=== PATIENT | male | born 1945 | race Caucasian/White ===

== ENCOUNTER 2025-02-17 11:10 | Emergency (ER) | payer MEDICARE, OTHER ==
[~2025-02-17] VITALS: Ht 177.8 cm; Wt 86.0 kg
[2025-02-17 11:16] VITALS: TEMP 98
[2025-02-17] MEDS ORDERED: tetanus & diphtheria toxoid (Td) vaccine 0.5ml IMVAC ONE (11:30)
[2025-02-17] MEDS: ringers solution, lacted 1,000 ML IV ONE (11:30)
[2025-02-17] MEDS: fentaNYL/PF 50MCG/1 ML 2ML syringe IV ONE (11:30)
[2025-02-17] MEDS: TETanus/Pertussis (Acell)/Diphther VAC/PF (Tdap-Adult) 0.5ml syringe IMVAC ONE (11:55)
[2025-02-17] MEDS: HYDROmorphone inj. 0.5 MG/0.5 ML DISP.SYRIN IV ONE (11:56)
[2025-02-17 12:01] LABS: BASOPHILS % (AUTO) 0.3 % (0-1); EOSINOPHILS # (AUTO) 0.2 X10'3 (0-0.9); EOSINOPHILS % (AUTO) 2.1 % (0-6); HEMATOCRIT 42.6 % (42.0-52.0); HEMOGLOBIN 14.1 g/dl (14.0-17.9); LYMPHOCYTES # (AUTO) 2.1 X10'3 (1.1-4.8); MEAN CORPUSCULAR HEMOGLOBIN 30.6 PG (27.0-31.0); MEAN CORPUSCULAR HGB CONC 33.2 g/dL (33.0-36.5); MEAN CORPUSCULAR VOLUME 92.2 FL (78-98); MEAN PLATELET VOLUME 7.7 FL (7.4-10.4); MONOCYTES # (AUTO) 0.7 X10'3 (0-0.9); MONOCYTES % (AUTO) 6.6 % (2-12); NEUTROPHILS # (AUTO) 7.6 X10'3 (1.8-7.7); PLATELET COUNT 318 X10'3 (140-440); RED BLOOD COUNT 4.62 X10'6 (4.70-6.10); WHITE BLOOD COUNT 10.7 X10'3 (4.5-11.0)
[2025-02-17 12:09] LABS: ALANINE AMINOTRANSFERASE 31 U/L (12-78); ALBUMIN/GLOBULIN RATIO 1.3 (1.1-1.5); ALKALINE PHOSPHATASE 75 IU/L (46-116); ANION GAP 11 (8-16); ASPARTATE AMINO TRANSFERASE 32 U/L (10-37); BILIRUBIN,TOTAL 0.7 MG/DL (0.1-1.0); BLOOD UREA NITROGEN 21 MG/DL (7-18); BUN/CREATININE RATIO 19.3 (10.0-20.0); CALCIUM 8.5 MG/DL (8.5-10.1); CHLORIDE 103 MMOL/L (99-107); CREATININE 1.09 MG/DL (0.60-1.10); GLUCOSE 212 MG/DL (70-104); POTASSIUM 3.9 MMOL/L (3.5-5.1); SODIUM 138 MMOL/L (135-145); TOTAL CARBON DIOXIDE 24.3 MMOL/L (24-32); TOTAL PROTEIN 7.1 G/DL (6.4-8.2); eCRCL 58 ML/MIN; eGFR 65 ML/MIN
[2025-02-17] MEDS: HYDROmorphone 1 mg/ml syringe IV ONE ×2 (12:38→13:27)
[2025-02-17 13:43] VITALS: BP 141/76; PULSE 80; RESP 17; O2SAT 98
== END 2025-02-17 13:45 | disposition short-term general hospital (02) ==
LOC: ER 11:11
DX: T21.32XA Burn of third degree of abdominal wall, initial encounter (principal); T21.31XA Burn of third degree of chest wall, initial encounter; T24.311A Burn of third degree of right thigh, initial encounter; T22.351A Burn of third degree of right shoulder, initial encounter; I49.8 Other specified cardiac arrhythmias; X08.8XXA Exposure to other specified smoke, fire and flames, initial encounter; Y93.89 Activity, other specified; Y92.89 Other specified places as the place of occurrence of the external cause; Y99.8 Other external cause status
CPT/HCPCS: 36415; 80053; 85025; 90715; 93005; 96361; 96374; 96375; 96376; 99291; A6258; G0008; J1171; J3010; J7030; J7120; 90471

== ENCOUNTER 2025-10-11 08:19 | Outpatient (CLI) | payer MEDICARE, OTHER ==
[2025-10-11 08:59] LABS: MEAN PLATELET VOLUME 7.6 FL (7.4-10.4); RED CELL DISTRIBUTION WIDTH 12.6 % (11.5-14.5)
[2025-10-11 09:03] LABS: APTT 27 SECONDS (22-32); INR 1.0 INR
[2025-10-11 09:07] LABS: CHOL/HDL RATIO 3.2 (0.00-4.99); CREATININE 0.94 MG/DL (0.60-1.10); LDL CHOLESTEROL 118 MG/DL (50-100); TOTAL CARBON DIOXIDE 28.8 MMOL/L (24-32); eGFR 77 ML/MIN
[2025-10-12] MEDS ORDERED: tamsulosin hcl PO (15:57)
[2025-10-12] MEDS ORDERED: LOSA25TA41 PO (15:57)
[2025-10-12] MEDS ORDERED: OMEP20TA23 PO (15:57)
== END 2025-10-11 23:59 | disposition home or self-care (01) ==
LOC: LAB 08:19
PROVIDERS: ATTEND Internal Medicine Interventional Cardiology
DX: Z01.812 Encounter for preprocedural laboratory examination (principal); I50.22 Chronic systolic (congestive) heart failure; Z13.220 Encounter for screening for lipoid disorders
CPT/HCPCS: 36415; 80048; 80061; 85025; 85610; 85730

== ENCOUNTER 2025-10-13 07:05 | Day surgery (SDC) | payer MEDICARE, OTHER ==
[~2025-10-13] VITALS: Ht 177.8 cm; Wt 85.0 kg
[2025-10-13] VITALS (12 sets, daily range): BP systolic 96–160; BP diastolic 58–80; PULSE 56–70; RESP 11–16; TEMP 98.2; O2SAT 94–97
[~2025-10-13 07:05] MED LIST: LOSA25TA41 PO; OMEP20TA23 PO; tamsulosin hcl PO
--- NOTE | 2025-10-13 07:52 | ELECTROCARDIOGRAPH REPORT ---
[facility] Test Date: 2025-10-13 Test Time: 07:50:12 Pat Name: MIMI MARTINES Department: [facility] Patient ID: [id number] Room: Gender: M Pharmacy Aide: COLLINS : 1945 Requested By: ERNESTO LAGUNAS Order Number: [id number] Reading MD: Dr. DENIZ Win Measurements Intervals [place] Rate: 60 P: 78 MD: 203 QRS: 79 QRSD: 171 T: -84 QT: 509 QTc: 509 Interpretive Statements Sinus rhythm Left bundle branch block Electronically Signed On 10-13-2025 16:35:[address] DENIZ Win Please click the below link to view image of tracing.
[2025-10-13] MEDS ORDERED: Tamsulosin PO (08:50)
[2025-10-13] MEDS ORDERED: LIDOcaine 1% (10mg/ml) 2ml vial ONE (09:01)
[2025-10-13] MEDS ORDERED: midazolam 1 mg/ML 2ml injection ONE (09:01)
[2025-10-13] MEDS ORDERED: fentaNYL/PF 50MCG/1 ML 2ML syringe ONE (09:01)
[2025-10-13] MEDS ORDERED: verapamil 2.5 mg/ml inj IV ONE (09:01)
[2025-10-13] MEDS ORDERED: heparin 1,000unit/ml 10ml vial 10 ML ONE (09:02)
[2025-10-13] MEDS ORDERED: nitroGLYCERIN 500mcg/5mL D5W 5 ML IV ONE (09:04)
[2025-10-13] MEDS ORDERED: LIDOcaine 1% 30ml preserv. free vial ONE (09:16)
[2025-10-13] MEDS ORDERED: ondansetron/PF 4mg/2ml inj IV PRN (10:50)
[2025-10-13] MEDS ORDERED: HYDROcodone/acetaminophen 10/325mg tab PO PRN (10:55)
[2025-10-13] MEDS ORDERED: HYDROcodone/acetaminophen 5mg/325mg tablet PO PRN (10:55)
[2025-10-13] MEDS ORDERED: OXAZEpam 15mg capsule PO PRN (10:55)
--- NOTE | 2025-10-21 16:26 | CARDIOLOGY REPORT ---
DATE OF SERVICE: 10/13/2025 DICTATING PHYSICIAN: Bryson Pillai MD CARDIAC CATHETERIZATION REPORT DATE OF STUDY: 10/13/2025 PROCEDURES: * Attempted access to the right radial artery. * Access to the left common femoral artery. * Selective coronary angiography. * Conscious sedation monitoring time for 15 minutes. INDICATION: Aortic stenosis. PHYSICIAN: Bryson Pillai MD DESCRIPTION OF PROCEDURE: After informed consent was obtained, the patient was brought to the lab in the fasting state, where he was prepped and draped in the usual C-arm fashion. Attempted access to the right radial artery was made without success. Thereafter, access to the left common femoral artery was obtained. Using a JL4 followed by a JR4 catheter, selective coronary angiography was performed. HEMODYNAMICS: For the patient's hemodynamics, please refer to the event log. There was no significant gradient across the aortic valve on catheter pull back. FINDINGS: All of the patient's coronary arteries are medium caliber vessels with mild luminal irregularities. IMPRESSION: * Mild luminal irregularities with no significant coronary artery disease by angiography. * Left ventriculography was not performed. Brysno Pillai MD TID: [id number] RECEIPT: [id number] LINDY/CAMILLA
== END 2025-10-13 13:30 | disposition home or self-care (01) ==
LOC: SSTAY O 07:05
PROVIDERS: ATTEND Student in an Organized Health Care Education/Training Program
DX: I35.0 Nonrheumatic aortic (valve) stenosis (principal); I44.7 Left bundle-branch block, unspecified; I50.9 Heart failure, unspecified; Z79.899 Other long term (current) drug therapy
CPT/HCPCS: 93005; 93454; 99152; C1894; J1644; J2003; J2250; J3010; J3490; J7030; Q9967; Z7610; 99153